=== PATIENT | female | born 1960 | race Caucasian/White ===

== ENCOUNTER 2018-08-05 00:50 | Outpatient (CLI) | payer OTHER, SELFPAY ==
--- NOTE | 2018-08-05 08:41 | DI.MAMMO_ITS ---
SYMPTOM/DIAGNOSIS: SCREENING, PREVENTATIVE CARE, Z00.00 MAMMOGRAMS: Mammograms were interpreted according to the usual protocol including computer analysis with CAD system, tomosynthesis and C view imaging. The breasts are of moderate density with fairly symmetrical distribution of fibroglandular tissue. No dominant mass or clumped microcalcification is identified in either breast. The current examination is compared with previous examinations including 06/2016 and there has been no gross interval change in appearance in comparison with the previous studies. CONCLUSION: No specific evidence of malignancy at this time. Routine screening examinations are suggested at yearly intervals in this age group according to the ACS/ACR guidelines. Category 1. Breast density, category B. MQSA ASSESSMENT OF FINDINGS: Negative. Category 1. Patient will receive a letter notifying them of these results. BI-RADS category B. There are scattered areas of fibroglandular density.
== END 2018-08-05 01:10 ==
PROVIDERS: PCP Family Medicine; Visit Provider Family Medicine
DX: Z00.00 Encounter for general adult medical examination without abnormal findings (principal); Z12.31 Encounter for screening mammogram for malignant neoplasm of breast
CPT/HCPCS: 77063; 77067

== ENCOUNTER 2019-08-05 15:55 | Outpatient (REF) | payer OTHER, SELFPAY ==
[2019-08-05 21:52] LABS: HCT 43.1 % (36.0-46.0); HGB 14.3 g/dL (12.0-15.5); Mean Corp. HGB Concentration 33.2 g/dL (32.0-36.0); Mean Corpuscular Hemoglobin 29.7 pg (27.0-33.0); Mean Corpuscular Volume 89.4 fL (80-95); Mean Platelet Volume 11.8 fL (8.0-11.0); Platelet Count 275 x1000/uL (130-400); RBC 4.82 m/cumm (4.00-5.20); RBC Distribution Width 13.3 % (11.7-14.6); White Blood Cell Count 8.89 k/cumm (4.4-10.8)
[2019-08-05 22:19] LABS: ALT 21 U/L (14-59); AST 25 U/L (15-37); Albumin 3.5 g/dL (3.4-5.0); Alkaline Phosphatase 107 U/L (46-116); Anion Gap 9.6 mmol/L (3-11); BUN 21 mg/dL (7-18); Bilirubin, Total 0.3 mg/dL (0.2-1.0); C-Reactive Protein 0.35 mg/dL (0.0-0.3); CO2 25.4 mmol/L (21.0-32.0); CREATININE 0.79 mg/dL (0.55-1.02); Calcium 8.9 mg/dL (8.5-10.1); Chloride 105 mmol/L (98-107); Glucose 96 mg/dL (74-106); Potassium 4.7 mmol/L (3.5-5.1); Sodium 140 mmol/L (136-145); Total Protein 7.8 g/dL (6.4-8.2)
[2019-08-05 22:33] LABS: ESR 30 mm/hr (0-30)
== END 2019-08-05 16:15 ==
LOC: NCHCN 15:55
PROVIDERS: PCP Family Medicine; Visit Provider Family Medicine
DX: Z00.00 Encounter for general adult medical examination without abnormal findings (principal); R05 Cough; R10.12 Left upper quadrant pain
CPT/HCPCS: 80053; 85027; 85652; 86140

== ENCOUNTER 2019-08-26 07:45 | Outpatient (CLI) | payer OTHER, SELFPAY ==
--- NOTE | 2019-08-26 | DI.RAD_ITS ---
EXAM: XR CHEST 2V PA LATERAL INDICATION: NON PREDUCTIVE COUGH R05. COMPARISON: No exams were available for comparison TECHNIQUE: 2D digital imaging was performed. FINDINGS: The heart size is normal. The aorta is mildly tortuous. The lungs appear clear. No infiltrate, ef fusion or pulmonary edema is seen. There are mild degenerative disc changes in the thoracic spine. IMPRESSION: No acute abnormality. DATA REPOSITORY: RADIATION DOSE DELIVERED:
== END 2019-08-26 08:05 ==
PROVIDERS: PCP Family Medicine; Visit Provider Family Medicine
DX: R05 Cough (principal)
CPT/HCPCS: 71046

== ENCOUNTER 2020-04-06 10:03 | Outpatient (CLI) | payer OTHER, SELFPAY ==
--- NOTE | 2020-04-06 | DI.RAD_ITS ---
EXAM: XR KNEE LT 3V AP,LAT,AI CLINICAL HISTORY: LT KNEE PAIN M25.562. TECHNIQUE: 2D digital imaging was performed. COMPARISON: No exams were available for comparison FINDINGS: There are marked degenerative changes of the left knee. The findings are most marked in the patellof emoral joint where there is loss of the joint space, subchondral sclerosis and periarticular spurring present. No acute fracture or dislocation. There is a small joint effusion. The soft tissues are unremarkable. IMPRESSION: Marked degenerative changes of the patellofemoral joint. DATA REPOSITORY: RADIATION DOSE DELIVERED:
== END 2020-04-06 10:23 ==
PROVIDERS: PCP Family Medicine; Visit Provider Family Medicine
DX: M17.12 Unilateral primary osteoarthritis, left knee (principal)
CPT/HCPCS: 73562

== ENCOUNTER 2020-04-06 12:24 | Outpatient (CLI) | payer OTHER, SELFPAY ==
[2020-04-06 14:01] LABS: D-Dimer 711 ng/mlFEU (<500)
== END 2020-04-06 12:44 ==
PROVIDERS: PCP Family Medicine; Visit Provider Family Medicine
DX: M25.562 Pain in left knee (principal)
CPT/HCPCS: 36415; 85379

== ENCOUNTER 2020-09-07 16:39 | Outpatient (REF) | payer OTHER, SELFPAY ==
--- NOTE | 2020-09-07 15:10 | PAPFT_PTH ---
PATIENT: Patricia Walker LOC: [facility]#:[id number] AGE/SX: 60/F ROOM: RE09/07/[address]: Chelsie Doran V : 1960 BED: DIS: 09/07/2020 SPEC #: [id number] RECD: 09/10/20 12:56 STATUS: SREEKANTH RENawaf #: [id number] DELBERT: 09/07/20 15:[address]: Chelsie Doran V DEPT: [facility] Cytology RECD BY: Leticia Pereyra Tissues: 1 - CX/ENDOCX FOR PAP SMEARS Procedures: PAP THIN PREP/[facility] Screening HPV DNA PROBE Comments: [id number]
== END 2020-09-07 16:40 | disposition home or self-care (01) ==
LOC: NCHCN 16:39
PROVIDERS: PCP Family Medicine; Visit Provider Family Medicine
DX: Z12.4 Encounter for screening for malignant neoplasm of cervix (principal); Z11.51 Encounter for screening for human papillomavirus (HPV); Z01.419 Encounter for gynecological examination (general) (routine) without abnormal findings
CPT/HCPCS: 88142; 87624

== ENCOUNTER 2020-09-13 01:14 | Outpatient (CLI) | payer OTHER, SELFPAY ==
--- NOTE | 2020-09-13 11:15 | DI.MAMMO_ITS ---
EXAM: MG MAMMO SCREENING CLINICAL HISTORY: SCREENING,[facility],Z00.00. TECHNIQUE: Bilateral full field digital CC and MLO mammographic images were obtained with 3D tomosyn thesis and utilizing computer aided detection (CAD). COMPARISON: Prior mammograms dating back to 2010, the most recent being July 2018. FINDINGS: There are no CAD designations. There are no new spiculated masses nor malignant appearing microcalcification groups. There is no significant architectural distortion nor skin thickening-retraction. IMPRESSION: No radiographic evidence of malignancy. BI-RADS Category 1 - Negative Breast Density - Category B - Scattered areas of fibroglandular density Breast density Category C or D implies that the patient has dense breast tissue. Dense breast tissue can make it harder to find cancer on a mammogram. Dense breast tissue is also associated with an incr eased risk of breast cancer. This information about the result of the mammogram report was provided to the patient to raise their awareness. Use this report when you speak with the patient about their risks for breast cancer, which includes their family history. At that time, you may recommend additional screening tests (Ultrasoun d or MRI) as these tests may add significant information. A negative radiographic report should not delay biopsy if a dominant or clinically suspicious mass is present. Up to ten percent of cancers are not identified on mammography. A negative report may reinforce clinical impression. Adenosis and dense breasts may obscure an underlying neoplasm. False positive reports average 6 to 10%. Patient will receive a letter notifying them of these results.
== END 2020-09-13 01:34 ==
PROVIDERS: PCP Family Medicine; Visit Provider Family Medicine
DX: Z00.00 Encounter for general adult medical examination without abnormal findings (principal); Z12.31 Encounter for screening mammogram for malignant neoplasm of breast
CPT/HCPCS: 77063; 77067

== ENCOUNTER 2021-04-17 02:10 | Outpatient (CLI) | payer OTHER, SELFPAY ==
--- NOTE | 2021-04-17 08:20 | DI.RAD_ITS ---
Exam(s) XR SACRUM EXAM: XR SACRUM CLINICAL HISTORY: HIP PAIN, M25.552. TECHNIQUE: 2D digital imaging was performed. COMPARISON: No exams were available for comparison FINDINGS: No evidence of pelvic nor sacral fracture. There are advanced changes in the right hip joint. Left hip joint appears unremarkable. There fusio n across L5-S1 disc space, probably sacralized. Other disc spaces above this level appear unremarkab le. There is some degenerative change the facet joints of lower 2 levels. The sacroiliac joints shavon ear [id number]. IMPRESSION: DATA REPOSITORY: RADIATION DOSE DELIVERED:
--- NOTE | 2021-04-17 08:20 | DI.RAD_ITS ---
Exam(s) XR HIP LT COMPLETE AP PELVIS EXAM: XR HIP LT COMPLETE AP PELVIS CLINICAL HISTORY: LT HIP PAIN, M25.552. TECHNIQUE: 2D digital imaging was performed. COMPARISON: No exams were available for comparison FINDINGS: AP view of the pelvis both hips and additional two views of left hip, previous for comparison There are no pelvic or hip fractures. The left hip appears unremarkable. On the opposite-right side there are advanced degenerative changes narrowing of the hip joint and deg enerative subarticular cysts in the right humeral head. IMPRESSION: Left hip unremarkable. Advanced degenerative changes the opposite-right hip. DATA REPOSITORY: RADIATION DOSE DELIVERED:
--- NOTE | 2021-04-17 08:20 | DI.RAD_ITS ---
Exam(s) XR LUMBAR SPINE COMPLETE EXAM: XR LUMBAR SPINE COMPLETE CLINICAL HISTORY: LT LEG PAIN, M79.605. TECHNIQUE: 2D digital imaging was performed. COMPARISON: CR XR HIP LT COMPLETE AP PELVIS from 04/17/2021 CR XR HIP LT COMPLETE AP PELVIS from 04/17/2021 FINDINGS: There is no evidence of fracture nor listhesis. Rudimentary L5-S1 disc space. Some narrowing of L4- 5 disc space noted. Mild degenerative changes facet joints of the lower 2 levels. No osseous lesion s. No scoliosis. Visualized sacroiliac joints unremarkable. IMPRESSION: Degenerative disc disease. DATA REPOSITORY: RADIATION DOSE DELIVERED:
== END 2021-04-17 02:30 ==
PROVIDERS: PCP Family Medicine; Visit Provider Nurse Practitioner Family
DX: M25.552 Pain in left hip (principal); M79.605 Pain in left leg; M16.11 Unilateral primary osteoarthritis, right hip; M51.36 Other intervertebral disc degeneration, lumbar region
CPT/HCPCS: 72110; 72220; 73502

== ENCOUNTER 2021-05-03 15:06 | Outpatient (REF) | payer OTHER, SELFPAY ==
[2021-05-03 21:43] LABS: BUN 24 mg/dL (7-18); Glucose 87 mg/dL (74-106)
[2021-05-03 21:44] LABS: Anion Gap 6.1 mmol/L (3-11); CO2 27.9 mmol/L (21.0-32.0); CREATININE 0.8 mg/dL (0.55-1.02); Chloride 107 mmol/L (98-107); Potassium 4.2 mmol/L (3.5-5.1); Sodium 141 mmol/L (136-145)
== END 2021-05-03 15:07 | disposition home or self-care (01) ==
LOC: NCHCN 15:06
PROVIDERS: PCP Family Medicine; Visit Provider Family Medicine
DX: I10 Essential (primary) hypertension (principal)
CPT/HCPCS: 80048

== ENCOUNTER 2021-06-28 00:18 | Outpatient (CLI) | payer OTHER, SELFPAY ==
--- NOTE | 2021-06-28 10:00 | DI.MRI_ITS ---
Exam(s) MR LUMBAR SPINE WO EXAM: MR LUMBAR SPINE WO CLINICAL HISTORY: LOW BACK PAIN,SPONDYLOSIS,RT HIP ARTHRITIS,RT SACROILIAC JOINT ARTHRITIS. TECHNIQUE: Multiplanar multisequence MRI of the Lumbar spine was performed. COMPARISON: CR XR LUMBAR SPINE COMPLETE from 04/17/2021 FINDINGS: Bones: The last intervertebral disc space is designated the L5/S1 level for the numbering purpose of this examination. The vertebral body heights are well maintained. Alignment is satisfactory. The si gnal characteristics are unremarkable. There is narrowing of the L5-S1 disc space. Cord: The conus tip ends at the T12 level. It is of normal size and signal intensity. T12-L1: No disc herniations or bulges are present. No central spinal canal or neural foraminal stenos is. L1-2: No disc herniations or bulges are present. No central spinal canal or neural foraminal stenosis . L2-3: No disc herniations or bulges are present. No central spinal canal or neural foraminal stenosis . L3-4: No disc herniations or bulges are present. No central spinal canal or neural foraminal stenosis . L4-5: There is a moderate left paracentral disc herniation. There does appear to be left lateral rec ess stenosis compressing the left L5 nerve root. There are hypertrophic changes of the facets and li gamentum flavum. These all contribute to cause mild to moderate central spinal canal stenosis. No s ignificant neural foraminal stenosis is seen. L5-S1: There is very mild prominence of the osteophyte disc complex. No central spinal canal or neur al foraminal stenosis. Soft tissues: The visualized SI joints and sacrum are well maintained. The paraspinal soft tissues ar e unremarkable. IMPRESSION: 1. Moderate left paracentral L4-L5 disc herniation causing left lateral recess stenosis and compressi ng the left L5 nerve root. 2. Degenerative changes seen at L4-L5 which contribute to cause mild to moderate central spinal canal stenosis. DATA REPOSITORY:
== END 2021-06-28 00:38 ==
PROVIDERS: PCP Family Medicine; Visit Provider Student in an Organized Health Care Education/Training Program
DX: M16.11 Unilateral primary osteoarthritis, right hip (principal); M47.816 Spondylosis without myelopathy or radiculopathy, lumbar region; M47.818 Spondylosis without myelopathy or radiculopathy, sacral and sacrococcygeal region
CPT/HCPCS: 72148

== ENCOUNTER 2022-01-09 18:13 | Outpatient (REF) | payer OTHER, SELFPAY ==
[2022-01-09 18:56] LABS: HCT 36.8 % (36.0-46.0); HGB 12.6 g/dL (11.2-15.7); MCH 31.8 pg (27.0-33.0); MCHC 34.2 % (32.0-36.0); MCV 93 fL (80-95); MPV 10.5 fL (8.0-11.0); Platelet Count 247 10^3/uL (130-400); RBC 3.96 10^6/uL (3.93-5.22); RDW 12.5 % (11.7-14.6); RDW-SD 42.8 fL; WBC 6.06 10^3/uL (4.4-10.8)
[2022-01-09 18:58] LABS: ESR 19 mm/hr (0-30)
[2022-01-09 19:17] LABS: Hemoglobin A1C 5.6 % (<5.7)
[2022-01-09 19:24] LABS: ALT 19 U/L (14-59); AST 16 U/L (15-37); Albumin 3.4 g/dL (3.4-5.0); Alkaline Phosphatase 98 U/L (46-116); Anion Gap 6.3 mmol/L (3-11); BUN 23 mg/dL (7-18); Bilirubin, Total 0.3 mg/dL (0.2-1.0); C-Reactive Protein 0.29 mg/dL (0.0-0.3); CO2 25.7 mmol/L (21.0-32.0); Calcium 8.8 mg/dL (8.5-10.1); Chloride 105 mmol/L (98-107); Estimated GFR 56.37 (mL/min/1.73m2); Glucose 93 mg/dL (74-106); Potassium 4.5 mmol/L (3.5-5.1); Sodium 137 mmol/L (136-145); TSH (W/Ref FT4) 2.98 uIU/mL (0.36-3.74); Total Protein 7.4 g/dL (6.4-8.2)
[2022-01-09 20:18] LABS: Calculated LDL 113 mg/dL (<100); Cholesterol 195 mg/dL (<200); HDL Cholesterol 61 mg/dL (40-60); Triglyceride 105 mg/dL (<150)
[2022-01-10 18:02] LABS: Rheumatoid Factor <8.6 IU/mL (<12.0)
[2022-01-13 15:39] LABS: ANA Interpretation Negative (Negative)
== END 2022-01-09 18:14 | disposition home or self-care (01) ==
LOC: NCHCN 18:13
PROVIDERS: PCP Family Medicine; Visit Provider Family Medicine
DX: Z00.00 Encounter for general adult medical examination without abnormal findings (principal)
CPT/HCPCS: 80053; 80061; 85027; 85652; 83036; 84443; 86038; 86140; 86431

== ENCOUNTER 2022-03-20 11:54 | Outpatient (CLI) | payer OTHER, SELFPAY ==
--- NOTE | 2022-03-20 08:15 | DI.RAD_ITS ---
Exam(s) XR KNEE LT 3V AP,LAT,AI EXAM: XR KNEE LT 3V AP,LAT,AI CLINICAL HISTORY: L knee pain. TECHNIQUE: 2D digital imaging was performed of the left knee. Three images were obtained. AP, late ral and PA tunnel views were obtained. COMPARISON: CR XR KNEE LT 3V AP,LAT,AI from 04/06/2020 FINDINGS: BONES: No acute fracture is present. No bony destructive lesion is seen. JOINTS: There is marked narrowing of the medial femoral tibial and patellofemoral joint. Periarticul ar spurring of seen involving all 3 joint compartments. There is a small suprapatellar joint effusio n. SOFT TISSUE: Normal. IMPRESSION: Marked osteoarthritis of the knee. DATA REPOSITORY: RADIATION DOSE DELIVERED:
== END 2022-03-20 11:55 | disposition home or self-care (01) ==
LOC: DIORS 11:54
PROVIDERS: PCP Family Medicine; Referring Provider Family Medicine; Visit Provider Physician Assistant
DX: M17.12 Unilateral primary osteoarthritis, left knee (principal)
CPT/HCPCS: 73562

== ENCOUNTER 2022-06-30 15:50 | Outpatient (REF) | payer OTHER, SELFPAY ==
[2022-06-30 16:40] LABS: BUN 26 mg/dL (7-18); Calcium 8.8 mg/dL (8.5-10.1); Chloride 105 mmol/L (98-107); Estimated GFR 64.09 (mL/min/1.73m2); Glucose 91 mg/dL (74-106); Potassium 4.2 mmol/L (3.5-5.1); Sodium 138 mmol/L (136-145)
[2022-06-30 16:59] LABS: Hemoglobin A1C 5.2 % (<5.7)
== END 2022-06-30 15:51 | disposition home or self-care (01) ==
LOC: NCHCN 15:50
PROVIDERS: PCP Family Medicine; Visit Provider Family Medicine
DX: I10 Essential (primary) hypertension (principal); R73.9 Hyperglycemia, unspecified; Z00.00 Encounter for general adult medical examination without abnormal findings
CPT/HCPCS: 80048; 83036

== ENCOUNTER 2024-03-24 16:39 | Outpatient (REF) | payer MEDICAID, SELFPAY ==
[2024-03-24 15:16] LABS: Abs Immature Grans 0.01 10^3/uL (0.0-0.06); Absolute Basophil Count 0.07 10^3/uL (0.0-0.2); Absolute Eosinophil Count 0.09 10^3/uL (0.0-0.7); Absolute Lymphocyte Count 2.26 10^3/uL (1.2-3.4); Absolute Monocyte Count 0.65 10^3/uL (0.1-0.8); Absolute Neutrophil Count 2.64 10^3/uL (1.2-6.7); Basophils % 1.2 %; Eosinophils % 1.6 %; HCT 39.5 % (36.0-46.0); Immature Grans % 0.2 %; Lymphocytes % 39.5 %; MCHC 32.9 % (32.0-36.0); MCV 94 fL (80-95); MPV 10.1 fL (8.0-11.0); Monocytes % 11.4 %; Neutrophils % 46.1 %; Platelet Count 254 10^3/uL (130-400); RDW 12.9 % (11.7-14.6); RDW-SD 44.7 fL; WBC 5.72 10^3/uL (4.4-10.8)
[2024-03-24 15:37] LABS: ALT 21 U/L (14-59); AST 18 U/L (15-37); Albumin 3.6 g/dL (3.4-5.0); Alkaline Phosphatase 102 U/L (46-116); Anion Gap 6.2 mmol/L (3-11); BUN 26 mg/dL (7-18); Bilirubin, Total 0.39 mg/dL (0.2-1.0); CO2 27.8 mmol/L (21.0-32.0); CREATININE 0.9 mg/dL (0.55-1.02); Calcium 9.2 mg/dL (8.5-10.1); Chloride 104 mmol/L (98-107); Estimated GFR 71.83 (mL/min/1.73m2); Glucose 91 mg/dL (74-106); Potassium 4.2 mmol/L (3.5-5.1); Sodium 138 mmol/L (136-145); TSH (W/Ref FT4) 2.51 uIU/mL (0.36-3.74); Total Protein 7.4 g/dL (6.4-8.2)
[2024-03-24 16:26] LABS: Hemoglobin A1C 5.4 % (<5.7)
== END 2024-03-24 16:40 | disposition home or self-care (01) ==
LOC: NCHCN 16:39
PROVIDERS: PCP Family Medicine; Visit Provider Family Medicine
DX: R60.0 Localized edema (principal)
CPT/HCPCS: 80053; 83036; 84443; 85025

== ENCOUNTER 2025-06-08 18:37 | Outpatient (REF) | payer BC, SELFPAY ==
[2025-06-08 19:17] LABS: HCT 34.7 % (36.0-46.0); HGB 11.2 g/dL (11.2-15.7); MCH 30.9 pg (27.0-33.0); MCHC 32.3 % (32.0-36.0); MCV 96 fL (80-95); MPV 10.9 fL (8.0-11.0); Platelet Count 242 10^3/uL (130-400); RBC 3.62 10^6/uL (3.93-5.22); RDW 12.6 % (11.7-14.6); RDW-SD 44.5 fL; WBC 7.50 10^3/uL (4.4-10.8)
[2025-06-08 19:20] LABS: ESR 12 mm/hr (0-30)
[2025-06-08 19:39] LABS: Hemoglobin A1C 5.1 % (<5.7)
[2025-06-08 19:49] LABS: ALT 15 U/L (10-49); AST 18 U/L (<34); Albumin 3.8 g/dL (3.2-5.0); Alkaline Phosphatase 91 U/L (46-116); Anion Gap 9.2 mmol/L (3-11); BUN 24 mg/dL (9-23); Bilirubin, Total 0.4 mg/dL (0.2-1.2); CO2 25.8 mmol/L (20.0-31.0); Calcium 8.8 mg/dL (8.3-10.6); Chloride 109 mmol/L (98-107); Glucose 98 mg/dL (74-106); Potassium 3.9 mmol/L (3.5-5.1); Sodium 144 mmol/L (136-145); Total Protein 6.6 g/dL (5.7-8.2)
== END 2025-06-08 18:38 | disposition home or self-care (01) ==
LOC: NCHCN 18:37
PROVIDERS: PCP Family Medicine; Visit Provider Family Medicine
DX: M79.10 Myalgia, unspecified site (principal); E66.9 Obesity, unspecified; I10 Essential (primary) hypertension
CPT/HCPCS: 80053; 85027; 85652; 83036